=== PATIENT | male | born 1975 | race Two or more races ===

== ENCOUNTER 2025-02-26 07:34 | Outpatient (CLI) | payer OTHER | END 2025-02-26 07:42 | disposition home or self-care (01) | LOC: SONOGRAMA 07:34 | PROVIDERS: ATTEND Urology | DX: C61 Malignant neoplasm of prostate (principal); N40.1 Benign prostatic hyperplasia with lower urinary tract symptoms; R97.20 Elevated prostate specific antigen [PSA] ==